=== PATIENT | male | born 1980 | race Caucasian/White ===

== ENCOUNTER 2018-05-18 20:18 | Emergency (ER) | payer BC, OTHER ==
[2018-05-18] MEDS ORDERED: Sodium Chloride 0.9% 10 ML Syringe FLUSH PRN (20:40)
[2018-05-18] MEDS ORDERED: Sodium Chloride 0.9% 1,000 ML IV ONE (20:40)
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
[2018-05-18 21:16] LABS: CHLORIDE,CL 108 mmol/L (98-107); SODIUM,NA 145 mmol/L (136-145)
[2018-05-18 21:17] LABS: ANION GAP 18.9 mmol/L (10-20)
--- NOTE | 2018-05-20 08:08 | CT ---
[id number] CT/CT Head WO IV EXAM: NONCONTRAST HEAD CT INDICATION: Right arm weakness and strokelike symptoms. COMPARISON: None. DISCUSSION: The ventricles and sulci are normal in size and configuration. The sexton and white matter are normal in attenuation. No mass effect or midline shift. No acute hemorrhage or extra-axial fluid collection. No acute territorial infarct is identified. A limited look at the orbits and paranasal sinuses is unremarkable. IMPRESSION: 1. Negative CT exam. Consider brain MRI for further evaluation. Christiano Watson MD 05/20/18 0807 Thank you for allowing us to participate in the care of your patient.
== END 2018-05-18 21:13 | disposition short-term general hospital (02) ==
LOC: VM.ED 20:18
DX: I63.9 Cerebral infarction, unspecified (principal); R29.810 Facial weakness; Z98.890 Other specified postprocedural states; Z90.49 Acquired absence of other specified parts of digestive tract; Z88.0 Allergy status to penicillin; Z79.82 Long term (current) use of aspirin; Z79.899 Other long term (current) drug therapy
CPT/HCPCS: 36415; 70450; 80053; 82550; 84484; 85025; 85610; 93005; 96374; 96376; 99285-25